=== PATIENT | female | born 1950 | race Caucasian/White ===

== ENCOUNTER → 2017-02-21 | Outpatient (CLI) | payer MEDICARE, OTHER ==
[~2017-02-21] MED LIST: ASPI-611 PO; ATEN-36 PO; CALC-22 PO; CHOL200024 PO; FISH1CAP29 PO; FLUT16SP12 NS; MULT-806 PO; [UNRECOGNIZED DRUG - CODE] PO
== END ==
LOC: WC.BC 15:54
DX: Z12.31 Encounter for screening mammogram for malignant neoplasm of breast (principal); N64.59 Other signs and symptoms in breast
CPT/HCPCS: 77063; G0202

== ENCOUNTER 2017-05-29 12:52 | Inpatient (IN) ==
[2017-05-29] MEDS ORDERED: ONDANSETRON 4 MG/2 ML INJECTION IVP ONE (13:09)
[2017-05-29] MEDS ORDERED: MORPHINE SULFATE 2 MG SYRINGE IVP ONE (13:09)
--- NOTE | 2017-05-29 13:19 | Emergency Department Report ---
Lower Extremity Injury HPI - General Chief Complaint: Extremity Injury, Lower Stated Complaint: rt ankle Time Seen by Provider: 05/29/17 12:56 Source: patient Mode of arrival: wheelchair Limitations: no limitations - History of Present Illness HPI Narrative: 66yo woman presents to the ER today with right ankle pain. Pt missed the last step off of her porch just prior to arrival. When she stepped, she fell to the ground. Now has pain, swelling, and bruising over her medial ankle. Pt had to climb back into the house to call for help. A family member brought an air cast for pt to wear, to improve the pain. Has significant pain with wt bearing. complaint: ankle injury Onset (ago): minute(s) Type of Injury: unknown Place: home Severity: severe Severity scale (1-10): 8 Relieving factors: cold therapy, immobilization, rest Exacerbating factors: weight bearing, movement, palpation Context: fall Associated symptoms: swelling, unable to bear weight Other symptoms: none Treatments prior to arrival: cold therapy, splint - Related Data Home Medications Medication Instructions Recorded Confirmed aspirin 81 mg tablet,delayed 81 mg PO DAILY tab 05/11/17 05/29/17 release atenolol 25 mg tablet 50 mg PO DAILY #0 tab 05/11/17 05/29/17 duloxetine 30 mg capsule,delayed 30 mg PO DAILY 45 Days 05/11/17 05/29/17 release multivitamin tablet 1 cap PO DAILY 05/11/17 05/29/17 omega-3s 720 mg-dha 300 mg-epa 360 1 cap PO DAILY 05/11/17 05/29/17 mg-fish oil 1,200 mg capsule triamterene 37.5 0.5 tab PO DAILY 60 Days 05/11/17 05/29/17 mg-hydrochlorothiazide 25 mg tablet vitamin B complex tablet 1 tab PO DAILY 05/11/17 05/29/17 Allergies Allergy/AdvReac Type Severity Reaction Status Date / Time iodine Allergy Unknown TOPICAL-FULL Verified 05/29/17 13:08 BODY HIVES piroxicam Allergy Unknown Verified 05/29/17 13:08 Review of Systems All systems: reviewed and negative except as stated Musculoskeletal: Reports: as per HPI, joint swelling PFSH Patient Stated Medical History Sleep Apnea No Clinic Medical History (Last Updated 05/29/17 @ 14:46 by Colt Albarado DO) 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 Cardiac cath 2001- Neg.,. T.L.,. cervical decompression/fusion (2016). Family History: Family History (Last Reviewed 05/12/17 @ 08:41 by SHANAE Blount) Father , 66 Myocardial infarct Smoker Paternal Uncle CAD (coronary artery disease) Maternal Uncle CAD (coronary artery disease) Maternal Uncle CAD (coronary artery disease) Maternal Aunt Heart disease Maternal Grandfather CVA (cerebral vascular accident) Maternal Aunt Breast cancer Maternal Aunt Colon cancer - Social History Smoking status: Never smoker Physical Exam - Limitations Limitations: no limitations - General General appearance: alert, in no apparent distress, obese - Normal Exams: Head:: Normocephalic without trauma Eyes:: Pupils are PERRLA w/ EOMI, No scleral icterus, irritation, or foreign bodies noted ENMT:: No facial trauma, nasal exudates, pharyngeal erythema, or exudates are noted Neck:: Full range of motion, without adenopathy, JVD, bruits or thyromegaly Chest/Respirations:: Clear all nguyen, with good airflow, and symmetry bilaterally Cardiovascular:: Regular rate and rhythm, without murmur or gallop, Pulses 2+ all extremities, capillary refill, <2 seconds all extremities Abdomen:: Bowel sounds positive, soft, non-tender, non-distended, no hepatosplenomegaly, masses or bruits noted Lymphatic:: No lymphadenopathy, or lymphedema noted Integumentary:: No rashes, hives, hair and nails, without abnormality Neurological:: Patient is alert, and oriented, cranial nerves, motor/sensory/ cerebellar, exams w/o gross deficits, to observation Psychiatric:: Patient exhibits, appropriate attention, emotion and affect - Expanded Lower Extremity Exam Ankle exam: Present: tenderness, swelling, ecchymosis, deformity, tenderness over talofibular lig. Absent: normal inspection, full ROM, abrasion, laceration , crepitus, dislocation, erythema, anterior draw sign 1 - Deformity 2 - Pain Course Course Narrative: Orthopedic surgeon and PA presented to the ER for evaluation and consenting of pt. RT came and prepared for sedation. Propofol (1mg/kg) was ordered and drawn up. After paperwork completed, time out was performed. Pt was sedated successfully and ankle reduced, then splinted in place. Pt recovered without complications. Will be admitted under Dr. Sharpe (attending Ortho); plan for ORIF later today. - Consultations Consultation #1: Ortho (SHANAE Craig): May require specialized equipment (not available here) . Will consult with Surgeon and call back. Will need to reduce ankle in ER, then take pt to OR for definitive care. Pt Time: 13:25 Vital Signs Temperature 98.3 F 05/29/17 12:55 Pulse Rate 82 05/29/17 12:55 Respiratory Rate 18 05/29/17 12:55 Blood Pressure 139/73 05/29/17 12:55 Pulse Oximetry 98 05/29/17 12:55 Temperature 98.3 F 05/29/17 12:55 Pulse Rate 62 05/29/17 14:55 Respiratory Rate 13 05/29/17 14:55 Blood Pressure 132/63 05/29/17 14:45 Pulse Oximetry 92 05/29/17 14:55 Procedures - Orthopedic Joint Reduction Joint #1 Time Out Performed: Yes Side: right Joint Reduction Location: ankle Analgesia: procedural sedation (Propofol) Technique used: traction/counter-traction Post-reduction neuro exam: intact Post-reduction vascular: intact Post Reduction X-Ray Obtained: Yes Post Reduction X-Ray Results: reduced Splint Applied: Yes Patient Tolerated Procedure: well Additional Comments: Performed by Dr. Rendon and SHANAE Craig. Extremity Injury, Lower - Differential Diagnosis Likely: ankle sprain and strain, ankle fracture - Medical Records Attestation: I reviewed the patient's medical records. - Lab Data Attestation: I reviewed the patient's lab results. Result diagrams: 05/29/17 13:55 05/29/17 13:55 Lab Results 05/29/17 05/29/17 05/29/17 Range/Units 13:55 13:55 13:55 WBC 9.4 (4.5-11.0) T/MM3 RBC 4.92 (4.00-5.20) M/MM3 Hgb 14.0 (12-16) GM/DL Hct 42.3 (36-46) % MCV 86.0 (80-100) UM3 MCH 28.5 (26-34) UUG MCHC 33.1 (31-37) GM/DL RDW Std Deviation 41.4 (36.9-50.2) FL Plt Count 282 (130-400) T/MM3 MPV 11.5 (9.4-12.4) UM3 Immature Gran % (Auto) 0.2 (0.0-0.5) % Neut % (Auto) 71.3 H (33-66) % Lymph % (Auto) 19.8 L (23-45) % [place] % (Auto) 5.3 (0-9.0) % Eos % (Auto) 2.7 (0-4) % Baso % (Auto) 0.7 (0-2) % Neut # 6.7 (1.8-7.7) T/MM3 Lymph # 1.9 (1-4.8) T/MM3 [place] # 0.5 (0-0.8) T/MM3 Eos # 0.3 (0-0.5) T/MM3 Baso # 0.1 (0-0.2) T/MM3 Abs Immat Gran (auto) 0.02 (0.00-0.03) T/MM3 INR 0.91 L (0.99-1.21) Turbidity < 20 (0-20) Sodium 141 (134-144) MEQ/L Potassium 4.4 (3.6-5) MEQ/L Chloride 104 (98-107) MEQ/L Carbon Dioxide 20 L (22-30) MEQ/L Anion Gap 17 H (5-15) MEQ/L BUN 22.0 H (7-17) MG/DL Creatinine 0.8 (0.7-1.2) MG/DL GFR Calculation 71 BUN/Creatinine Ratio 28 H (6-26) RATIO Glucose 104 (65-110) MG/DL Calculated Osmolality 274 (261-280) MOSM/KG Calcium 10.2 (8.4-10.2) MG/DL Icterus Index < 2 (0-7) Specimen Hemolysis < 15 (0-25) - Radiology Data Attestation: I reviewed the patient's radiology results. Ankle: Trimalleolar fracture dislocation as described above. Tib/Fib: Trimalleolar fracture dislocation of the ankle as described above. Post-reduction ankle: Interval reduction of the previous due to noted trimalleolar fracture dislocation which is improved in position and alignment. Disposition Clinical Impression: Trimalleolar fracture of ankle, closed Qualifiers: Encounter type: initial encounter Laterality: right Qualified Code(s): S82.851A - Displaced trimalleolar fracture of right lower leg, initial encounter for closed fracture Disposition: 02 To [facility] – [place] Acute Care Time of Disposition: 14:46 - Seen By: physician
[2017-05-29] MEDS: SALINE FLUSH 10ml SYRINGE IVF PRN ×3 (13:28→23:36)
[2017-05-29] MEDS ORDERED: MORPHINE SULFATE 4 MG SYRINGE IVP PRN (13:31)
--- NOTE | 2017-05-29 13:32 | XRay Report ---
EXAM: XR ankle RT min 3V COMPARISON: None available. HISTORY: Rt ankle pain/deformity . FINDINGS: There is a comminuted obliquely oriented fracture through the distal metadiaphysis of the fibula mildly angulated and displaced laterally a shaft width. Additionally, there is a fracture through the base of the medial malleolus which is laterally displaced a half shaft width. There may be cortical irregularity of the posterior malleolus as well with fracture fragment displaced laterally. The talus bone is laterally a displaced half shaft width. The base of the fifth metatarsal is intact. The talar dome is thought to be intact. There is widening of the tibiofibular interosseous space. IMPRESSION: Trimalleolar fracture dislocation as described above. LOCATION OF DICT[place]: [facility] [place]
--- NOTE | 2017-05-29 14:03 | XRay Report ---
EXAM: XR tib/fib RT 2V COMPARISON: None available. HISTORY: Deformed tibia . FINDINGS: There is a comminuted obliquely oriented fracture through the distal metadiaphysis of the fibula mildly angulated and displaced laterally a shaft width. Additionally, there is a fracture through the base of the medial malleolus which is laterally displaced a half shaft width. There may be cortical irregularity of the posterior malleolus as well with fracture fragment displaced laterally. The talus bone is laterally a displaced half shaft width. The base of the fifth metatarsal is intact. The talar dome is thought to be intact. There is widening of the tibiofibular interosseous space. The proximal tibia and fibula are intact. There is lateral compartment narrowing and spurring of the knee. IMPRESSION: Trimalleolar fracture dislocation of the ankle as described above. LOCATION OF DICTATION: [facility] – [place] .
[2017-05-29] MEDS ORDERED: PROPOFOL 200 MG/20 ML INJECTION IVP ONE (14:04)
[2017-05-29] MEDS ORDERED: CEFAZOLIN 1 G INJECTION IVP ONE (14:45)
[2017-05-29] MEDS ORDERED: MORPHINE SULFATE 10 MG/ML VIAL IVP PRN (14:45)
[2017-05-29] MEDS ORDERED: ONDANSETRON 4 MG/2 ML INJECTION IVP PRN (14:45)
--- NOTE | 2017-05-29 15:01 | Orthopedic History & Physical ---
Orthopedic HPI - HPI Elements right ankle Injury: Yes (fall off of her porch about 10:00 05/29/17) Pain: stabbing, sharp Onset: sudden Radiating: No Severity: severe Duration: 1-6 hours How Often Does Pain Occur: constant Previous Surgery: No Previous Injury: No Aggrevated by: all activity Associated Symptoms: weakness, swelling, other (foot feels cool) Treatments Tried: cold/heat therapy, pain medications, rest, immobilization X-ray Findings: Other (Right trimalleolar ankle fracture/dislocation) Recommendation: ORIF [facility] Patient Stated Medical History Sleep Apnea No Clinic Medical History (Last Updated 05/29/17 @ 14:46 by Colt Albarado DO) 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 Cardiac cath 2001- Neg.,. T.L.,. cervical decompression/fusion (2016). Family History: Family History (Last Reviewed 05/12/17 @ 08:41 by SHANAE Blount) Father , 66 Myocardial infarct Smoker Paternal Uncle CAD (coronary artery disease) Maternal Uncle CAD (coronary artery disease) Maternal Uncle CAD (coronary artery disease) Maternal Aunt Heart disease Maternal Grandfather CVA (cerebral vascular accident) Maternal Aunt Breast cancer Maternal Aunt Colon cancer - Social History Smoking status: Never smoker Housing: house Household members: spouse Review of Systems - Constitutional Constitutional: Absent: chills, fatigue, headache(s) - EENT Eyes: Absent: change in vision Ears, nose, mouth, throat: Absent: headaches - Cardiovascular Cardiovascular: Absent: chest pain Vascular: Present: unilateral swelling (secondary to trauma, right ankle) - Respiratory Respiratory: Absent: cough - Gastrointestinal Gastrointestinal: Absent: abdominal pain - Genitourinary Genitourinary Female: Absent: dysuria - Musculoskeletal Musculoskeletal: Present: as per HPI - Integumentary/Breasts Integumentary: Present: swelling, wounds (excoriation, medial malleolus, not full thickness) - Neurological Neurological: Absent: dizziness - Hematologic/Lymphatic Hematologic/Lymphatic: Absent: easy bleeding Medications Home Medications Medication Instructions Recorded Confirmed Type aspirin 81 mg tablet,delayed 81 mg PO DAILY tab 05/11/17 05/29/17 History release atenolol 25 mg tablet 50 mg PO DAILY #0 tab 05/11/17 05/29/17 History duloxetine 30 mg capsule,delayed 30 mg PO DAILY 45 Days 05/11/17 05/29/17 History release multivitamin tablet 1 cap PO DAILY 05/11/17 05/29/17 History omega-3s 720 mg-dha 300 mg-epa 360 1 cap PO DAILY 05/11/17 05/29/17 History mg-fish oil 1,200 mg capsule triamterene 37.5 0.5 tab PO DAILY 60 Days 05/11/17 05/29/17 History mg-hydrochlorothiazide 25 mg tablet vitamin B complex tablet 1 tab PO DAILY 05/11/17 05/29/17 History Allergies Allergy/AdvReac Type Severity Reaction Status Date / Time iodine Allergy Unknown TOPICAL-FULL Verified 05/29/17 13:08 BODY HIVES piroxicam Allergy Unknown Verified 05/29/17 13:08 Orthopedic Exam Vital signs: Temperature 98.3 F 05/29/17 12:55 Pulse Rate 74 05/29/17 14:39 Respiratory Rate 22 05/29/17 14:39 Blood Pressure 132/60 05/29/17 14:39 Pulse Oximetry 99 05/29/17 14:39 Oxygen Delivery Method Nasal Cannula Oxygen Flow Rate 1 - Constitutional General Appearance: Present: alert, orientated x3, mild distress - Respiratory Exam Present: non-labored - Cardiovascular Exam Absent: pedal pulses intact (decreased post tibialis pulse in right ankle/foot) Capillary Refill: > 3 Seconds (right foot is cool to the touch.) - Abdominal Exam Absent: tenderness - Extremities Exam Present: tenderness (right ankle ), joint swelling Comments: Right ankle with obvious deformity, with foot subluxed laterally. - Integumentary Exam Present: other (excoriation over medial malleolus, no full thickness defect, cool to the touch.) - Lymphatic Lymphatic: Absent: lymphedema - Neurological Exam Present: no deficits - Psychiatric Exam Present: normal affect - Labs Result Diagrams: 05/29/17 13:55 05/29/17 13:55 Abnormal lab results 05/29/17 05/29/17 05/29/17 Range/Units 13:55 13:55 13:55 Neut % (Auto) 71.3 H (33-66) % Lymph % (Auto) 19.8 L (23-45) % INR 0.91 L (0.99-1.21) Carbon Dioxide 20 L (22-30) MEQ/L Anion Gap 17 H (5-15) MEQ/L BUN 22.0 H (7-17) MG/DL BUN/Creatinine Ratio 28 H (6-26) RATIO H & H 05/29/17 Range/Units 13:55 Hgb 14.0 (12-16) GM/DL Hct 42.3 (36-46) % Coagulation 05/29/17 Range/Units 13:55 INR 0.91 L (0.99-1.21) - Diagnostic results Ankle/Foot x-ray: report reviewed, image reviewed (trimalleolar fracture with lateral subluxation of talus 50%) Orthopedic Assessment and Plan (1) Trimalleolar fracture of ankle, closed Status: Acute Qualifiers: Encounter type: initial encounter Laterality: right Qualified Code(s): S82.851A - Displaced trimalleolar fracture of right lower leg, initial encounter for closed fracture Assessment and Plan: 1. Immediate closed reduction of the ankle secondary to decrease pulses and coolness in foot. Procedure: After obtaining written and verbal consent and under the direct supervision of Dr. Rendon, a right ankle closed reduction with splint application was performed. Dr. Albarado provided sedation with appropriate respiratory monitoring. 2. Strict ice and elevation 3. Dr. Sharpe has agreed to admit and perform an ORIF right ankle later this evening. Risks and benefits of the recommended procedure were discussed with the patient and/or patient's legal community health representative. They include: infection, nerve damage, artery damage, stroke, IL, PE, DVT, ileus, continued pain, or risk that the injury may not heal despite surgery. There are also medical risks of anesthesia. Risks are not limited to the above mentioned alone. 4. Moraphine for pain control, Zofran for nausea 5. keep NPO. Hospital Course Summary Disclaimer: The visit summary below is not to be considered part of the above Progress Note.
--- NOTE | 2017-05-29 15:09 | XRay Report ---
EXAM: XR ankle RT min 3V 1456 hours COMPARISON: 1322 hours HISTORY:Ankle fracture. post reduction . FINDINGS: There is interval reduction of the previously noted trimalleolar fracture dislocation. The obliquely oriented fracture through the distal metadiaphysis of the fibula appears now well aligned and only posteriorly displaced a cortex width. The transverse fracture through the base of the medial malleolus now appears to be in good anatomical position and alignment and is nondisplaced. There still remains some widening of the interosseous space, but is better approximated. There may be a cortical irregularity at the posterior malleolus which could represent nondisplaced fracture although is equivocal. IMPRESSION: Interval reduction of the previous due to noted trimalleolar fracture dislocation which is improved in position and alignment. LOCATION OF DICTATION: [facility] – [place] .
--- NOTE | 2017-05-29 15:17 | XRay Report ---
EXAM: XR chest 1V COMPARISON: None available. HISTORY: pre op . Ankle fracture. FINDINGS:EKG leads and wires project over the chest. The cardiomediastinal silhouette is within limits of normal. The pulmonary vascularity appears unremarkable. The lungs are clear. There is no evidence for pleural effusion. There is no evidence for a pneumothorax. No osseous abnormalities are identified. IMPRESSION: Unremarkable exam. LOC[place]CTATION: [facility] [place]
[2017-05-29] MEDS ORDERED: PROPOFOL 500 MG/50 ML VIAL IV ONE (15:21)
[2017-05-29] MEDS ORDERED: PROPOFOL 20 ML ONE ×2 (15:21→16:26)
[2017-05-29] MEDS ORDERED: FentaNYL 100 MCG/2 ML INJECTION ONE (15:22)
[2017-05-29] MEDS ORDERED: SEVOFLURANE 250ml LIQUID IH ONE (15:26)
--- NOTE | 2017-05-29 15:34 | Anesthesia Preoperative Report ---
Anesthesia Preoperative Record - Date and Time Date: 05/29/17 Preoperative Diagnosis: R Ankle Fx/Dislocation Proposed Procedure: orif right ankle NPO Since Date: 05/29/17 NPO Since Time: 10:00 Allergies/Adverse Reactions: Allergies Allergy/AdvReac Type Severity Reaction Status Date / Time iodine Allergy Unknown TOPICAL-FULL Verified 05/29/17 13:08 BODY HIVES piroxicam Allergy Unknown Verified 05/29/17 13:08 - Vital Signs Vital Signs: Temperature 98.3 F 05/29/17 12:55 Pulse Rate 62 05/29/17 14:55 Respiratory Rate 13 05/29/17 14:55 Blood Pressure 132/63 05/29/17 14:45 Pulse Oximetry 92 05/29/17 14:55 - Medications Inpatient Medications: Current Medications Sodium Chloride (Normal Saline) 1,000 mls @ 75 mls/hr IV .[id number] DION Morphine Sulfate (Morphine Sulfate Inj) 4 mg IVP Q4H PRN PRN Reason: Pain Last Admin: 05/29/17 13:38 Dose: 4 mg Morphine Sulfate (Morphine Sulfate Vial) 1 - 6 mg IVP Q1H PRN PRN Reason: Pain Ondansetron HCl (Zofran) 4 mg IVP Q6H PRN PRN Reason: Nausea &/or vomiting Sodium Chloride (Iv Flush) 10 - 80 ml IVF PRN PRN PRN Reason: Flushing Last Admin: 05/29/17 13:39 Dose: 30 ml Home Medications: Home Medications Medication Instructions Recorded Confirmed Type aspirin 81 mg tablet,delayed 81 mg PO DAILY tab 05/11/17 05/29/17 History release atenolol 25 mg tablet 50 mg PO DAILY #0 tab 05/11/17 05/29/17 History duloxetine 30 mg capsule,delayed 30 mg PO DAILY 45 Days 05/11/17 05/29/17 History release multivitamin tablet 1 cap PO DAILY 05/11/17 05/29/17 History omega-3s 720 mg-dha 300 mg-epa 360 1 cap PO DAILY 05/11/17 05/29/17 History mg-fish oil 1,200 mg capsule triamterene 37.5 0.5 tab PO DAILY 60 Days 05/11/17 05/29/17 History mg-hydrochlorothiazide 25 mg tablet vitamin B complex tablet 1 tab PO DAILY 05/11/17 05/29/17 History Is Patient on Beta Yulia?: Yes - Medical History Cardiovascular: Reports: Hypertension Neuro/Musculoskeletal: Reports: Back Problems, Depression - Surgical History Musculoskeletal Surgery/Tx: Reports: Other (C3-6 Laminectomy) Reproductive Surgery/Treatment: Reports: Tubal Ligation (11/1975), Other (Breast Biopsy 1968) Anesthesia Reactions: None Hx Family Anesthesia Reaction: No History of Motion Sickness: No - Social History Smoking Status: Never smoker Hx Chewing Tobacco Use: No Second Hand Exposure: No Substance Use Type: does not use Alcohol Intake Frequency: does not drink 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 Patient consents. Nursing pain assessment noted. Present for Discussion: spouse Attestation Statement: Prior to the delivery of any anesthetic medication, I examined the patient, developed the plan, obtained the patient's consent and discussed the risk and benefits of the procedure with the patient/guardian. - Additional Information Seen by Anesthesia: Yes
[2017-05-29] MEDS ORDERED: LIDOCAINE 1% (10mg/ml) 30ml SDV INJ ONE (15:45)
[2017-05-29] MEDS ORDERED: GLYCOPYRROLATE 0.4 MG/2 ML INJECTION ONE (16:21)
[2017-05-29] MEDS ORDERED: EPHEDRINE 50mg/ml INJECTION ONE (16:27)
[2017-05-29] MEDS ORDERED: SALINE FLUSH 10ml SYRINGE ONE (16:27)
[2017-05-29] MEDS ORDERED: ROCURONIUM 50 MG/5 ML INJECTION IVP ONE (16:35)
[2017-05-29] MEDS ORDERED: SUGAMMADEX 200mg/2ml INJECTION IVP ONE (17:36)
[2017-05-29] MEDS ORDERED: ACETAMINOPHEN 325 MG TABLET PO PRN (17:59)
[2017-05-29] MEDS ORDERED: SENNA + DOCUSATE TABLET PO PRN (17:59)
--- NOTE | 2017-05-29 18:03 | Operative Note ---
- Procedure Date of Admission: 05/29/17 Side: right Preoperative Diagnosis: other (trimalleolar ankle fracture) Postoperative Diagnosis: Same as preoperative diagnosis. Operation: other (open reduction internal fixation right trimalleolar ankle fracture) Surgeon: Mendel Sharpe MD Public Health Service Officer: SHANAE Craig Complications: None. Anesthesia: General Inhalation Gases Estimated Blood Loss: See Anesthesia Record. Fluids: Please see Anesthesia Record. Description of Procedure: Mrs. Zee in her right ankle identified and marked in the preoperative holding area. She is brought back to the operating suite and placed under general anesthesia. The right lower extremity was prepped and draped in normal sterile fashion. Timeout was performed. The leg was exsanguinated and the tourniquet inflated 250 mmHg. A lateral approach to the distal fibula was performed. Her fracture was a long oblique fracture was easily reduced under direct visualization. I placed a lag screw from anterior to posterior and this seemed to hold the fracture well. Bone quality was noted to be poor. I then selected a locking plate and placed it over the distal fibula. First 3 screws placed in a nonlocking fashion to bring the plate down to the bone. During this the fracture site did displace but less than a millimeter. I then proceeded to place several locking screws followed by 2 nonlocking screws through plate and the fracture site. Previous like screw was removed. For more locking screws were placed in the distal plate. This reduced the mortise well as well as the tib-fib space. The site was irrigated and closed by my partner as I moved to the medial side. A longitudinal incision was made over the fracture site medially. Blunt dissection was carried down to the fracture site and there was deltoid ligament and periosteum stuck within the fracture site. This was removed and the fracture site irrigated. The medial malleolus was then reduced under direct visualization and held with a clamp. I placed 246 mm 4.0 cannulated screws over guidewires and this held the fracture well reduced. Again bone quality was noted to be poor. Multiple fluoroscopic images were taken to ensure good hardware placement and fracture reduction before both wounds were closed in layers. 2-0 Vicryl was used in the subcutaneous tissue and 3-0 nylon in the skin. A well padded well molded posterior slab and stirrup type splint was then placed the tourniquet was let down the drapes removed and she was allowed to awake from general anesthesia and then taken to the recovery room under the care of anesthesia she tolerated procedure well and there were no complications.
[2017-05-29] MEDS: NS 1,000 ML IV SCH (18:07)
--- NOTE | 2017-05-29 18:11 | Post Procedure Note ---
Date of Procedure: 05/29/17 Orthopedic Surgeon: Dell Orthopedic Assisting Surgeon: Jean Alcala Anesthesia: General Inhalation Gases Procedure: Procedures Operation Date: 05/29/17 15:30 Actual Procedures p Open Reduction Internal Fixation Ankle(Right) - Doc Sharpe MD Condition: Stable Disposition: PACU
[2017-05-29] MEDS ORDERED: BUPIV 0.25% 30ml/LIDO 1% 30ml MIXTURE ID ONE (18:24)
--- NOTE | 2017-05-29 18:38 | Anesthesia Postoperative Note ---
- Date and Time Date: 05/29/17 Time: 18:38 - Status Patient Participated in Evaluation: Patient Participated in Person Vital Signs: Temperature 98.2 F 05/29/17 18:00 Pulse Rate 76 05/29/17 18:10 Respiratory Rate 16 05/29/17 18:10 Blood Pressure 118/58 05/29/17 18:00 Pulse Oximetry 98 05/29/17 18:10 Oxygen Delivery Method Nasal Cannula Oxygen Flow Rate 2 Respiratory Function: Airway Patent Cardiovascular Function: Regular Pulse EKG Rhythm: Normal Sinus Rhythm Mental Status: Alert and Oriented Pain Intensity: 0 Hydration: Taking PO Fluids Complications During Recover: None Apparent - Follow-Up Instructions Instructions: Per Surgeon
[2017-05-29 19:00] VITALS: BMI 31.9
[2017-05-29] MEDS: NOZIN NASAL SWAB NAS SCH (19:37)
[2017-05-29] MEDS: ASPIRIN *EC* 325 MG TABLET PO SCH (20:56)
[2017-05-29] MEDS: Oxycodone *IR* 5 MG TABLET PO PRN (23:26)
[2017-05-30] MEDS: CEFAZOLIN 1 G in NS 100 ML IV SCH ×2 (00:18→09:17)
[2017-05-30] MEDS: NOZIN NASAL SWAB NAS SCH ×2 (03:19→10:56)
[2017-05-30] MEDS: Oxycodone *IR* 5 MG TABLET PO PRN ×2 (03:28→06:30)
[2017-05-30] MEDS: NS 1,000 ML IV SCH (06:29)
--- NOTE | 2017-05-30 07:08 | Discharge Instructions ---
Discharge Plan - Med Rec/Dispo Referrals/Follow Up: Doc Sharpe MD [Physician] - 1 Week [place] Instructions: [facility] Postop Instructions Additional Instructions: toe touch weight bearing only. Prescriptions: New Aspirin *EC* [Ecotrin] 325 mg PO BID tablet Acetaminophen [Tylenol] 650 mg PO Q4H PRN tablet PRN Reason: Pain Oxycodone *Ir* [Roxicodone *Ir*] 5 - 15 mg PO Q3H PRN #60 tablet PRN Reason: Pain Continue atenolol 25 mg tablet 50 mg PO DAILY #0 tab duloxetine 30 mg capsule,delayed release 30 mg PO DAILY 45 Days triamterene 37.5 mg-hydrochlorothiazide 25 mg tablet 0.5 tab PO DAILY 60 Days multivitamin tablet 1 cap PO DAILY vitamin B complex tablet 1 tab PO DAILY Discontinued aspirin 81 mg tablet,delayed release 81 mg PO DAILY tab No Action omega-3s 720 mg-dha 300 mg-epa 360 mg-fish oil 1,200 mg capsule 1 cap PO DAILY - Disposition 01 Discharged Home, Self-Care
--- NOTE | 2017-05-30 07:43 | Orthopedic Progress Note ---
Date: Subjective/Severity of Illness: Tanja is doing okay this AM. She has required oxygen via [place]. She feels sleepy. She has not taken much pain medication in the past. She denies CP or SOB. Her splint is fitting well. She has not been up yet. She has urinated twice. Orthopedic Objective PO Vital signs: Temperature 97.6 F 05/30/17 07:31 Pulse Rate 64 05/30/17 07:31 Respiratory Rate 14 05/30/17 07:31 Blood Pressure 115/51 05/30/17 07:31 Pulse Oximetry 95 05/30/17 07:31 Oxygen Delivery Method Nasal Cannula Oxygen Flow Rate 1 Height and Weight: Height 5 ft 3 in Weight 180 lb 8.937 oz Body Mass Index 31.9 - Constitutional General Appearance: Present: alert, orientated x3, no acute distress - Respiratory Exam Present: non-labored - Cardiovascular Exam Capillary Refill: < 2-3 Seconds - Abdominal Exam Absent: tenderness - Extremities Exam Extremities: Present: normal capillary refill - Integumentary Exam Present: other (excoriation over medial malleolus, no full thickness defect noted yesterday. splint is on today) - Lymphatic Lymphatic: Absent: lymphedema - Neurological Exam Present: no deficits - Psychiatric Exam Present: normal affect - Labs Result Diagrams: 05/29/17 13:55 05/29/17 19:00 Abnormal lab results 05/29/17 Range/Units 19:00 Chloride 108 H (98-107) MEQ/L BUN 22.0 H (7-17) MG/DL BUN/Creatinine Ratio 28 H (6-26) RATIO Globulin 2.3 L (2.4-3.6) G/DL Orthopedic Assessment and Plan (1) Trimalleolar fracture of ankle, closed Status: Acute Qualifiers: Encounter type: initial encounter Laterality: right Qualified Code(s): S82.851A - Displaced trimalleolar fracture of right lower leg, initial encounter for closed fracture Assessment and Plan: up with PT today. Toe touch weight bearing. I will switch pain meds to [place] in an effort to limit the sleepiness and increased 02 demand ASA for DVT prevention for 6 weeks. If does well, discharge is an option later today. If not we will need to address admit status. Hospital Course Summary Disclaimer: The visit summary below is not to be considered part of the above Progress Note.
[2017-05-30] MEDS ORDERED: DULOXETINE 30 MG CAPSULE PO SCH (09:00)
[2017-05-30] MEDS ORDERED: ATENOLOL 50 MG TABLET PO SCH (09:00)
[2017-05-30] MEDS ORDERED: MULTI-VITAMIN PLAIN TABLET PO SCH (09:00)
[2017-05-30] MEDS ORDERED: TRIAMTERENE/HCTZ 37.5 MG-25 MG TABLET PO SCH (09:00)
[2017-05-30] MEDS: ASPIRIN *EC* 325 MG TABLET PO SCH (09:18)
--- NOTE | 2017-05-30 09:22 | Remote Fluorsocopy Report ---
Indication: ORIF RT ANKLE FX PROCEDURE: RF ankle RT 3 view: Encounter: Initial Comparison: Ankle radiographs dated May 29, 2017 Findings: Eight fluoroscopic spot images are submitted for interpretation. Images show open reduction and internal fixation of the distal tibial and fibular fractures with placement of a lateral fixation plate and screws in the fibula and two partially threaded cannulated screws across the medial malleolus with improved alignment of the fracture fragments. Impression: Fluoroscopy as above. Fluoroscopy time is 74 seconds. Fluoroscopy dose is 240.9 mRad. .
[2017-05-30] MEDS: HYDROCODONE/APAP 5mg/325mg TABLET PO PRN ×2 (10:55→16:27)
[2017-05-30 11:22] VITALS: BP 122/51; PULSE 64; TEMP 97.4; O2SAT 96
--- NOTE | 2017-05-30 11:32 | Metabolic Bone Disease Consult ---
Orthopedic Consultation HPI - Consultation Info Consult Date: 05/30/17 Attending Physician: Doc Sharpe MD - HPI Elements right ankle Pain: stabbing, sharp Onset: sudden Radiating: No Severity: severe Duration: 1-6 hours How Often Does Pain Occur: constant Previous Surgery: No Previous Injury: No Aggrevated by: all activity Associated Symptoms: weakness, swelling, other (foot feels cool) Treatments Tried: cold/heat therapy, pain medications, rest, immobilization X-ray Findings: Other (Right trimalleolar ankle fracture/dislocation) Recommendation: ORIF ON LICENSE OF [facility] Patient Stated Medical History Hypertension Yes Other Cardiology Yes: 1993 sepsis Sleep Apnea No Other Musculoskeletal Yes: 04/2015 [place] Depression Yes Clinic Medical History (Last Updated 05/29/17 @ 14:46 by Colt Albarado DO) 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 Cardiac cath 2001- Neg.,. T.L.,. cervical decompression/fusion (2015). Family History: Family History (Last Reviewed 05/12/17 @ 08:41 by SHANAE Blount) Father , 66 Myocardial infarct Smoker Paternal Uncle CAD (coronary artery disease) Maternal Uncle CAD (coronary artery disease) Maternal Uncle CAD (coronary artery disease) Maternal Aunt Heart disease Maternal Grandfather CVA (cerebral vascular accident) Maternal Aunt Breast cancer Maternal Aunt Colon cancer - Social History Current residence: Apartment/Private Home Medications Home Medications Medication Instructions Recorded Confirmed Type atenolol 25 mg tablet 50 mg PO DAILY #0 tab 05/11/17 05/29/17 History Allergies Allergy/AdvReac Type Severity Reaction Status Date / Time iodine Allergy Unknown TOPICAL-FULL Verified 05/29/17 13:08 BODY HIVES piroxicam Allergy Unknown Verified 05/29/17 13:08 Orthopedic Exam Vital signs: Temperature 98.3 F 05/29/17 12:55 Pulse Rate 74 05/29/17 14:39 Respiratory Rate 22 05/29/17 14:39 Blood Pressure 132/60 05/29/17 14:39 Pulse Oximetry 99 05/29/17 14:39 Oxygen Delivery Method Nasal Cannula Oxygen Flow Rate 1 - Constitutional General Appearance: Present: alert, orientated x3, no acute distress - Respiratory Exam Present: non-labored - Cardiovascular Exam Absent: pedal pulses intact (decreased post tibialis pulse in right ankle/foot) - Abdominal Exam Absent: tenderness - Extremities Exam Present: tenderness (right ankle ), joint swelling - Integumentary Exam Present: other (excoriation over medial malleolus, no full thickness defect noted yesterday. splint is on today) - Lymphatic Lymphatic: Absent: lymphedema - Neurological Exam Present: no deficits - Psychiatric Exam Present: normal affect Results - Labs Labs: [facility] 05/29/17 19:00 Sodium 142 Potassium 4.3 Chloride 108 H Carbon Dioxide 23 BUN 22.0 H Creatinine 0.8 Glucose 95 Calcium 9.3 D Liver Function 05/29/17 Range/Units 19:00 Total Bilirubin 0.70 (0.20-1.30) MG/DL AST 28 (14-36) U/L ALT 40 (9-52) U/L Alkaline Phosphatase 79 (38-126) U/L Albumin 4.1 (3.5-5.0) G/DL - Site of Current Fracture Lower Limb: Ankle/Foot - Fracture History History of Fracture Age 50 or Older: No - Risk Factors History of Rheumatoid Arthritis: No Secondary Osteoporosis Due To Condition/Medication: No - Pharmacologic Treatment Recomend Pharmacologic Therapy: No Therapy Not Recommended Due To: Bone Health Assessment Ongoing Pharmacologic Therapy Initiated: No Reason Not Initiating Therapy: Treatment Planned For Future - Bone Mineral Density Testing Was BMD Testing Recommended: Yes BMD Testing: Planned/Scheduled - Written Communication Was Patient Provided With A Letter: Yes Letter Provided To Patient's PCP: Yes Discharge Status: Routine Discharge To Home Date of Initial Screen: 05/30/17 Age: [age] F Gender: female Female: Postmenopausal Race: ruth Height/Weight: Height 1.6 m Weight 82.6 kg Body Mass Index 31.9 Phone: [phone] - Medications Home Medications: Home Medications Medication Instructions Recorded Confirmed Type atenolol 25 mg tablet 50 mg PO DAILY #0 tab 05/11/17 05/29/17 History
[2017-05-30] MEDS ORDERED: LORazepam 0.5 MG TABLET PO PRN (12:47)
[2017-05-30 14:08] VITALS: RESP 16
--- NOTE | 2017-05-30 15:06 | XRay Report ---
INDICATION: SOA PROCEDURE: CHEST 2-VIEWS UPRIGHT (PA & LAT) Encounter: Initial COMPARISON: May 29, 2017 FINDINGS: The lungs are clear without evidence of focal abnormal airspace opacity. There is no pleural effusion or pneumothorax. The heart size, mediastinal contours and pulmonary vascularity are within normal limits. Cervical spine fusion hardware. IMPRESSION: No acute cardiopulmonary disease. .
--- NOTE | 2017-05-30 15:11 | Consult Note ---
Consult Information - Data of Consult Requesting Physician: Doc Sharpe MD Primary Care Provider: Steven Maldonado MD Family Provider: Steven Maldonado MD - Consult Narrative Reason for consult: Shortness of breath History of present illness: This is a 58-year-old female admitted to the orthopedic surgery service for an ankle fracture. She has had it surgically repaired. Today during her physical therapy as she was trying to walk up stairs she developed sudden onset shortness of breath and sweating. She denies any dizziness. She denies any chest pain nausea or vomiting. Admits that she was very anxious and scared to attempt to walk up the stairs because of the pain she was about to experience from the fracture. States that when she got back to the room and had relaxed she felt back to her normal self. States that she had a similar episode in the emergency department and was given Ativan and that resolved her shortness of breath. 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 Cardiac cath 2001- Neg.,. T.L.,. cervical decompression/fusion (2016). Family History: Family History (Last Reviewed 05/12/17 @ 08:41 by SHANAE Blount) Father , 66 Myocardial infarct Smoker Paternal Uncle CAD (coronary artery disease) Maternal Uncle CAD (coronary artery disease) Maternal Uncle CAD (coronary artery disease) Maternal Aunt Heart disease Maternal Grandfather CVA (cerebral vascular accident) Maternal Aunt Breast cancer Maternal Aunt Colon cancer - Social History Smoking status: Never smoker Alcohol intake: never Current residence: Apartment/Private Home Review of Systems All systems: reviewed and no additional remarkable complaints except as stated - EENMT Eyes: Absent: change in vision - Cardiovascular Cardiovascular: Absent: chest pain Vascular: Present: unilateral swelling (secondary to trauma, right ankle) - Respiratory Respiratory: Absent: cough - Gastrointestinal Gastrointestinal: Absent: abdominal pain - Hematologic/Lymphatic Hematologic/Lymphatic: Absent: easy bleeding Medications Home Medications Medication Instructions Recorded Confirmed Type atenolol 25 mg tablet 50 mg PO DAILY #0 tab 05/11/17 05/29/17 History duloxetine 30 mg capsule,delayed 30 mg PO DAILY 45 Days 05/11/17 05/29/17 History release multivitamin tablet 1 cap PO DAILY 05/11/17 05/29/17 History omega-3s 720 mg-dha 300 mg-epa 360 1 cap PO DAILY 05/11/17 05/29/17 History mg-fish oil 1,200 mg capsule triamterene 37.5 0.5 tab PO DAILY 60 Days 05/11/17 05/29/17 History mg-hydrochlorothiazide 25 mg tablet vitamin B complex tablet 1 tab PO DAILY 05/11/17 05/29/17 History Allergies Allergy/AdvReac Type Severity Reaction Status Date / Time iodine Allergy Unknown TOPICAL-FULL Verified 05/29/17 13:08 BODY HIVES piroxicam Allergy Unknown Verified 05/29/17 13:08 Exam Vital Signs: Temperature 97.4 F 05/30/17 11:00 Pulse Rate 64 05/30/17 14:02 Respiratory Rate 16 05/30/17 14:02 Blood Pressure 122/51 05/30/17 11:00 Pulse Oximetry 96 05/30/17 14:02 Gen.-awake alert oriented 3 in no acute distress HEENT-PERRLA EOMI Neck-supple no JVD no bruits Cardiovascular-regular rate and rhythm Lungs-clear auscultation bilaterally Abdomen-benign Extremities-no edema cyanosis or clubbing. Musculoskeletal-right lower extremity in cast Height: 5 ft 3 in Weight: 82.6 kg Body Mass Index: 31.9 Results - Labs CBC & Chem 7: 05/29/17 13:55 05/29/17 19:00 Assessment and Plan Assessment and Plan: #1 shortness of breath This is most likely a panic attack. Chest x-ray performed today after the incident revealed no acute process. I do not believe that she has had a pulmonary embolism. There is no evidence of dysrhythmias. At this time I believe it is safe for discharge to home from a medical standpoint. Case was discussed with at bedside. Hospital Course Summary Disclaimer: The visit summary below is not to be considered part of the above Progress Note. Sepsis Assessment - Evaluation Sepsis screening result: No Definite Risk
--- NOTE | 2017-05-30 15:39 | Discharge Summary ---
Orthopedic Discharge Info Date of admission: 05/30/17 13:10 Anticipated date of discharge: 05/30/17 Primary care physician: Steven Maldonado MD Attending Physician: Doc Sharpe MD - Discharge Diagnosis (1) Trimalleolar fracture of ankle, closed Qualifiers: Encounter type: initial encounter Laterality: right Qualified Code(s): S82.851A - Displaced trimalleolar fracture of right lower leg, initial encounter for closed fracture Status: Acute - Procedures Procedures: ORIF right ankle 05/30/17. - Laboratory Result Diagrams: 05/29/17 13:55 05/29/17 19:00 Orthopedic Discharge HPI - HPI Elements right ankle Pain: stabbing, sharp Onset: sudden Radiating: No Severity: severe Duration: 1-6 hours How Often Does Pain Occur: constant Previous Surgery: No Previous Injury: No Aggrevated by: all activity Associated Symptoms: weakness, swelling, other (foot feels cool) Treatments Tried: cold/heat therapy, pain medications, rest, immobilization X-ray Findings: Other (Right trimalleolar ankle fracture/dislocation) Recommendation: ORIF Orthopedic Hospital Course Hospital course: 05/30/17 15:51 After appropriate preoperative clearance and signing of operative consent, the patient was given IV antibiotics, according to orthopedic protocol. The patient was taken to the operating room and underwent ORIF Rt ankle. Following surgery, antibiotics were discontinued less than 24 hours according to joint protocol. Appropriate anticoagulants were initiated and SCDs added for DVT prevention.. Pain control was obtained via multimodal approach. Bowel motivation addressed with scheduled and PRN medications. Early mobilization was initiated through PT services. The pt had some anxiety with mobility and hospitalist was consulted to manage her. Discharge arrangements made by a collaborative effort between the patient and Case Management. Follow-up is scheduled in 2-3 weeks. Discharge instructions given by orthopedic providers and nursing staff at discharge. Discharge condition was good. Ongoing care required?: No Discharge Plan - Med Rec/Dispo Referrals/Follow Up: Law Rendon MD [Physician] - 07/26/17 9:30 am Doc Sharpe MD [Physician] - 06/07/17 10:30 am [place] Instructions: [facility] Fracture Instructions, [facility] Postop Instructions Additional Instructions: Limit wt bearing as instructed. Aspirin 325mg BID x 6 weeks for blood clot prevention. Take medicine to prevent constipation. Use Incentive Spirometer several times a day to prevent pulmonary congestion. Keep the splint on and dry until you follow up in the office. Follow up 06/07/17 @ 10:30 AM with Domingo JOLLY at [facility]. Prescriptions: New Aspirin *EC* [Ecotrin] 325 mg PO BID tablet Milk of Magnesia [Mom] 30 ml PO DAILY PRN udc PRN Reason: Constipation Acetaminophen [Tylenol] 650 mg PO Q4H PRN tablet PRN Reason: Pain Oxycodone *Ir* [Roxicodone *Ir*] 5 - 15 mg PO Q3H PRN #60 tablet PRN Reason: Pain Hydrocodone/APAP 5/325 [Gray 5/325] 2 tab PO Q4H PRN #60 tablet PRN Reason: Pain Continue atenolol 25 mg tablet 50 mg PO DAILY #0 tab duloxetine 30 mg capsule,delayed release 30 mg PO DAILY 45 Days triamterene 37.5 mg-hydrochlorothiazide 25 mg tablet 0.5 tab PO DAILY 60 Days multivitamin tablet 1 cap PO DAILY vitamin B complex tablet 1 tab PO DAILY Discontinued aspirin 81 mg tablet,delayed release 81 mg PO DAILY tab No Action omega-3s 720 mg-dha 300 mg-epa 360 mg-fish oil 1,200 mg capsule 1 cap PO DAILY Discharge Instructions/Outpatient Orders: Final Provider Discharge Instructions Location: Determined By Patient - Disposition 01 Discharged Home, Self-Care
== END 2017-05-30 17:05 | disposition home or self-care (01) | DRG 494 ==
LOC: ED 12:52 → SRG 12:52
PROVIDERS: ADMIT Orthopaedic Surgery; ATTEND Orthopaedic Surgery